=== PATIENT | female | born 1950 | race Caucasian/White ===

== ENCOUNTER → 2016-06-18 | Outpatient (CLI) | payer MEDICARE, OTHER ==
--- NOTE | 2016-06-19 08:17 | MRI ---
EXAM DESCRIPTION: MRI of the cervical spine CLINICAL HISTORY: SPONDYLOSIS W/O MYELOPATHY COMPARISON: October 19, 2015. TECHNIQUE: Multiplanar MRI of the cervical spine was performed without contrast. GENERAL There is reversal of the normal cervical lordosis. Disc desiccation at all levels of cervical spine with intervertebral disc height loss at C4-5 and C5-6. Anterior osteophytes noted at those 2 levels. C2-3 Mild right neural foraminal narrowing from facet and uncovertebral joint hypertrophy. The spinal canal and left neural foramina are unremarkable. C3-4 Moderate bilateral neural foraminal narrowing noted from facet and uncovertebral joint hypertrophy. 2 mm focal posterior disc protrusion with cord contact. Negative for myelomalacia. The midline diameter of spinal canal is adequate at 1 cm. C4-5 Asymmetric left broad-based posterior disc osteophyte complex with minimal cord flattening. The midline diameter spinal canal is adequate at 1 cm. There is moderate bilateral neural foraminal narrowing from facet and uncovertebral joint hypertrophy. C5-6 Mild bilateral neural foraminal narrowing from facet and uncovertebral joint hypertrophy. 3 mm broad-based posterior disc osteophyte complex is noted. No cord contact. The midline diameter spinal canal is adequate at 11 mm. C6-7 No spinal canal or neural foraminal narrowing. C7-T1 No significant findings. CORD AND INTRASPINAL No cervical cord or intraspinal lesions. IMPRESSION: Today's exam demonstrates multilevel degenerative disc and facet disease as described above with no spinal canal narrowing at any level. There is cord contact noted at C3-C4 and C4-C5 without evidence of myelomalacia. Neural foraminal narrowing noted from C2-C3 to C5-C6. Electronically signed by: Heladio Phillips MD 06/19/2016 08:15
== END ==
LOC: MRI 10:50
PROVIDERS: ATTEND Family Medicine
DX: M47.812 Spondylosis without myelopathy or radiculopathy, cervical region (principal); M43.00 Spondylolysis, site unspecified; M50.320 Other cervical disc degeneration, mid-cervical region, unspecified level

== ENCOUNTER → 2016-07-01 | Outpatient (CLI) | payer MEDICARE, OTHER | LOC: LAB.NP 15:33 | PROVIDERS: ATTEND Family Medicine | DX: E03.9 Hypothyroidism, unspecified (principal) ==

== ENCOUNTER → 2016-07-03 | Outpatient (CLI) | payer MEDICARE, OTHER | END | disposition home or self-care (01) | LOC: LAB.O 13:00 | PROVIDERS: ATTEND Family Medicine | DX: R19.7 Diarrhea, unspecified (principal); E03.9 Hypothyroidism, unspecified ==

== ENCOUNTER 2016-08-16 18:58 | Observation (INO) | payer MEDICARE, OTHER ==
[2016-08-16] MEDS ORDERED: SODIUM CHLORIDE 0.9% 1000ML 1,000 ML IVS ONE (19:12)
[2016-08-16] MEDS ORDERED: SODIUM CHLORIDE 0.9% (FLUSH) 10 ML SYG IV PRN ×2 (19:46→22:18)
--- NOTE | 2016-08-16 20:31 | RAD ---
EXAM DESCRIPTION: Chest,1 View CLINICAL HISTORY: Syncope/Afib COMPARISON: None. TECHNIQUE: AP portable taken at 2012 hours, upright position. FINDINGS: Moderate expansion of the lungs. Dilated airspaces in the right upper lobe. No consolidation or pleural effusion. Slight elevation of the right hemidiaphragm. No pneumothorax. Cardiopulmonary vascular structures and mediastinum contour is negative. IMPRESSION: 1. Question of emphysematous changes in the right lung. No acute infiltrate. 2. No pulmonary vascular congestion. Electronically signed by: Ferny Prado MD 08/16/2016 8:30 PM CDT
[2016-08-16] MEDS ORDERED: KCL 20MEQ/WATER FOR INJ 100ML 20 MEQ in PREMIX BAG 1 BAG IVPB ONE (20:58)
[2016-08-16] MEDS ORDERED: MAGNESIUM SULFATE PREMIX 2GM 2 GM in PREMIX BAG 1 BAG IVPB ONE (21:01)
[2016-08-16] MEDS ORDERED: MAGNESIUM SULFATE PREMIX 2GM 50 ML IVPB ONE (21:04)
[2016-08-16] MEDS ORDERED: POTASSIUM CHLORIDE 20 MEQ TAB PO ONE (21:16)
--- NOTE | 2016-08-16 21:21 | ED.PDOC ---
History of Present Illness - General Chief Complaint: Syncope/Near Syncope Stated Complaint: diarrhea,syncope Time Seen by Provider: 08/16/16 19:11 Source: patient, RN notes reviewed, Vital Signs reviewed, family - - History of Present Illness Initial Comments: Patient is a 65 y/o female who had an episode of syncope this morning. She got out of bed and woke up with her dog licking her face. She does not know how long her LOC lasted. Patient was sent to the ED by Dr. Aldana. She has had diarrhea for 12 weeks. It is very watery, about 7-8 times a day. She is drinking water with some pedialyte. She has been seen by GI and recently had a [id number]. She does not yet have the results of the biopsies. She has had testing done on her stool and there is no C.diff or ova/parasites. Over the past 2 weeks, she has passed out 3 times. She is feeling very weak, and her says she sometimes gets confused. Concern is that she has anemia or significant dehydration. Timing/Duration: other - 12 weeks of diarrhea, worsening over past 2 weeks Severity: severe Improving Factors: nothing Worsening Factors: nothing Associated Symptoms: malaise, syncope, weakness Allergies/Adverse Reactions: Allergies Penicillin G Allergy (Mild, Verified 09/15/12 08:37) Sulfur Allergy (Mild, Verified 09/15/12 08:37) Clarithromycin [From Biaxin] Allergy (Unverified 08/09/13 08:51) Home Medications: Ambulatory Orders Folic Acid 1 mg PO DAILY 08/08/13 Levothyroxine Sodium 75 mcg PO DAILY 08/08/13 Lisinopril 10 mg PO DAILY 08/08/13 Venlafaxine HCl [Venlafaxine HCl ER] 75 mg PO DAILY 08/08/13 Zolpidem Tartrate 10 mg PO HS 08/08/13 Loperamide HCl Cap [Imodium Cap] 2 mg PO Q4H 08/16/16 Mesalamine [Lialda] 2.4 gm PO DAILY 08/16/16 Relpax 08/16/16 Toprol Xl 08/16/16 Xarelto 08/16/16 Review of Systems - Review of Systems Constitutional: States: malaise, weakness EENTM: States: no symptoms reported Respiratory: States: no symptoms reported Cardiology: States: no symptoms reported Gastrointestinal/Abdominal: States: nausea Genitourinary: States: no symptoms reported Musculoskeletal: States: joint pain, muscle pain, neck pain Skin: States: no symptoms reported Neurological: States: weakness Endocrine: States: no symptoms reported Hematologic/Lymphatic: States: no symptoms reported All other Systems: Reviewed and Negative Past Medical History (General) - Patient Medical History Hx Cardiac Disorders: Yes - Atrial fib Hx Congestive Heart Failure: No Hx Diabetes: No Hx MRSA: No - Vaccination History Hx Influenza Vaccination: Yes Hx Pneumococcal Vaccination: Yes - Social History Hx Tobacco Use: No Family Medical History - Family History Mother Family History: Unknown Living Status: Unknown Physical Exam - Physical Exam General Appearance: Alert, Comfortable, No apparent distress Eye Exam: bilateral normal Ears, Nose, Throat: hearing grossly normal, normal ENT inspection Respiratory: lungs clear, normal breath sounds, no respiratory distress, no accessory muscle use Cardiovascular/Chest: regular rate, rhythm, no edema, no gallop, no murmur Gastrointestinal/Abdominal: non tender, soft, no organomegaly, abnormal bowel sounds - hyperactive Extremity: normal range of motion, non-tender, normal inspection, no pedal edema Neurologic: no motor/sensory deficits, alert, normal mood/affect, oriented x 3 Skin Exam: normal color, warm/dry Progress - Results/Orders Results/Orders: 08/16/16 08/16/16 08/16/16 19:14 20:03 20:09 Temperature 99.6 F Pulse Rate [ 105 H 97 H Left Brachial] Respiratory 16 16 Rate Blood Pressure 141/82 111/71 [Left Arm] O2 Sat by Pulse 95 92 L 92 L Oximetry 08/16/16 21:13 Temperature Pulse Rate [ 97 H Left Brachial] Respiratory 16 Rate Blood Pressure 117/75 [Left Arm] O2 Sat by Pulse 93 L Oximetry 08/16/16 19:46 Telemetry .ONCE Sodium Chloride 0.9% (Flush) [Saline Flush Syringe] 10 ml IV PRN PRN EKG Stat Pulse Ox Stat 08/16/16 20:58 KCl 20Meq/Water For Inj 100Ml [Potassium 20meq in Water 100ml] 20 meq Premix Bag 1 bag IVPB ONCE 08/16/16 21:01 Magnesium Sulfate Premix 2Gm 2 gm Premix Bag 1 bag IVPB ONCE Laboratory Results WBC 5.2 K/mm3 (4.8-10.8) 08/16/16 19:30 RBC 3.86 M/mm3 (4.20-5.40) L 08/16/16 19:30 Hgb 12.1 gm/dL (12.0-16.0) 08/16/16 19:30 Hct 35.6 % (36.0-47.0) L 08/16/16 19:30 MCV 92.1 fl (81.0-99.0) 08/16/16 19:30 MCH 31.3 pg (27.0-31.0) H 08/16/16 19:30 MCHC 34.1 g/dL (33.0-37.0) 08/16/16 19:30 RDW 13.4 % (11.5-14.5) 08/16/16 19:30 Plt Count 219 K/mm3 (130-400) 08/16/16 19:30 MPV 7.5 fl (7.40-10.4) 08/16/16 19:30 Absolute Neuts (auto) 3.40 K/uL (1.8-6.8) 08/16/16 19:30 Absolute Lymphs (auto) 0.50 K/uL (1.0-3.4) L 08/16/16 19:30 Absolute Monos (auto) 1.20 K/uL (0.2-0.8) H 08/16/16 19:30 Absolute Eos (auto) 0.10 K/uL (0.0-0.4) 08/16/16 19:30 Absolute Basos (auto) 0.00 K/uL (0.0-0.1) 08/16/16 19:30 Neutrophils % 65.9 % (42.0-78.0) 08/16/16 19:30 Lymphocytes % 8.7 % (20.0-50.0) L 08/16/16 19:30 Monocytes % 23.2 % (2.0-9.0) H 08/16/16 19:30 Eosinophils % 1.6 % (1.0-5.0) 08/16/16 19:30 Basophils % 0.6 % (0.0-2.0) 08/16/16 19:30 Sodium 130 mmol/L (135-145) L 08/16/16 19:30 Potassium 2.5 mmol/L (3.6-5.0) L 08/16/16 19:30 Chloride 92 mmol/L (101-111) L 08/16/16 19:30 Carbon Dioxide 23 mmol/L (21-31) 08/16/16 19:30 Anion Gap 17.5 (12-18) 08/16/16 19:30 BUN 9 mg/dL (7-18) 08/16/16 19:30 Creatinine 0.80 mg/dL (0.6-1.3) 08/16/16 19:30 BUN/Creatinine Ratio 11.3 (10-20) 08/16/16 19:30 Random Glucose 108 mg/dL (70-105) H 08/16/16 19:30 Serum Osmolality 260.0 mOsm/L (275-295) L 08/16/16 19:30 Calcium 8.7 mg/dL (8.4-10.2) 08/16/16 19:30 Magnesium 1.4 mg/dL (1.8-2.5) L 08/16/16 19:30 Total Bilirubin 0.9 mg/dL (0.2-1.0) 08/16/16 19:30 AST 31 IU/L (10-42) 08/16/16 19:30 ALT 19 IU/L (10-60) 08/16/16 19:30 Alkaline Phosphatase 57 IU/L (42-121) 08/16/16 19:30 Creatine Kinase 460 IU/L (26-140) H* 08/16/16 19:30 CK-MB (CK-2) 7.6 ng/mL (0.0-4.4) H* 08/16/16 19:30 CK-MB (CK-2) % 1.65 % (0.0-4.3) 08/16/16 19:30 Troponin I < 0.02 ng/mL (0.01-0.05) 08/16/16 19:30 B-Natriuretic Peptide 60.4 pg/ml (0-100) 08/16/16 19:30 Serum Total Protein 6.9 gm/dL (6.4-8.2) 08/16/16 19:30 Albumin 3.4 g/dl (3.2-5.5) 08/16/16 19:30 Globulin 3.5 gm/dL (2.3-3.5) 08/16/16 19:30 Albumin/Globulin Ratio 1.0 (1.1-1.9) L 08/16/16 19:30 Urine Color Yellow (Yellow) 08/16/16 19:35 Urine Appearance Clear (Clear) 08/16/16 19:35 Urine pH 6.0 (4.5-7.8) 08/16/16 19:35 Ur Specific Nemo 1.015 (1.005-1.030) 08/16/16 19:35 Urine Protein 30 mg/dL 08/16/16 19:35 Urine Glucose (UA) Negative mg/dL (Negative) 08/16/16 19:35 Urine Ketones >=160 mg/dL (NEGATIVE) 08/16/16 19:35 Urine Blood Small (Negative) H 08/16/16 19:35 Urine Nitrite Negative 08/16/16 19:35 Urine Bilirubin Small (NEGATIVE) H 08/16/16 19:35 Urine Urobilinogen 0.2 mg/dL (0.2-1.0) 08/16/16 19:35 Ur Leukocyte Esterase Negative (Negative) 08/16/16 19:35 Urine RBC 0-1 /hpf 08/16/16 19:35 Urine WBC 1-3 /hpf 08/16/16 19:35 Ur Epithelial Cells 3-5 /hpf 08/16/16 19:35 Urine Bacteria Rare 08/16/16 19:35 - EKG/XRAY/CT EKG: Sinus - 99 BPM, no ST T wave changes Comments: NML axis, Prolonged QT, No comparison--NSR with prolonged QT Departure - Departure Clinical Impression: Hypokalemia, gastrointestinal losses, Hypomagnesemia, Dehydration Syncope Qualifiers: Syncope type: unspecified Qualifier Code: (R55) Syncope and collapse Time of Disposition: 21:37 Disposition: Admit Patient Home Medications: Ambulatory Orders Folic Acid 1 mg PO DAILY 08/08/13 Levothyroxine Sodium 75 mcg PO DAILY 08/08/13 Lisinopril 10 mg PO DAILY 08/08/13 Venlafaxine HCl [Venlafaxine HCl ER] 75 mg PO DAILY 08/08/13 Zolpidem Tartrate 10 mg PO HS 08/08/13 Loperamide HCl Cap [Imodium Cap] 2 mg PO Q4H 08/16/16 Mesalamine [Lialda] 2.4 gm PO DAILY 08/16/16 Relpax 08/16/16 Toprol Xl 08/16/16 Xarelto 08/16/16 Decision To Admit - Decistion To Admit Decision to Admit Date: 08/16/16 Decision to Admit Time: 21:10
[2016-08-16] MEDS ORDERED: KCL 20MEQ/WATER FOR INJ 100ML 100 ML IVPB ONE (21:37)
[2016-08-16] MEDS ORDERED: ONDANSETRON INJ 4 MG/2 ML VIAL IV PRN (22:18)
[2016-08-16] MEDS ORDERED: MAGNESIUM HYDROXIDE 30 ML UD PO PRN (22:18)
[2016-08-16] MEDS ORDERED: HYDROcodone 5MG/APAP 325MG 1 EA TAB PO PRN (22:18)
[2016-08-16] MEDS ORDERED: LEVALBUTEROL NEBS 1.25 MG/3 ML VIAL NEB PRN (22:18)
[2016-08-16] MEDS ORDERED: LOPERAMIDE CAP 2 MG CAP PO PRN (22:23)
[2016-08-16] MEDS ORDERED: TEMAZEPAM 15 MG CAP PO PRN (22:26)
[2016-08-16] MEDS ORDERED: IV SET AND CAP CHANGE INJ INJ SCH (22:30)
[2016-08-16] MEDS: KCL 40MEQ/NS 1,000 ML IVS PRN (22:51)
[2016-08-16] MEDS: BIFIDOBACTERIUM INFANTIS 4 MG CAP PO SCH (22:58)
[2016-08-17] MEDS ORDERED: OMEPRAZOLE CAP 20 MG CAP PO SCH (06:30)
[2016-08-17] MEDS ORDERED: POTASSIUM CHLORIDE 20 MEQ TAB PO SCH (07:30)
[2016-08-17] MEDS: BIFIDOBACTERIUM INFANTIS 4 MG CAP PO SCH (08:25)
[2016-08-17] MEDS ORDERED: LEVOTHYROXINE SODIUM 0.075 MG TAB PO SCH (08:30)
[2016-08-17] MEDS ORDERED: METOPROLOL SUCCINATE XL 50 MG TAB PO SCH (09:00)
[2016-08-17] MEDS ORDERED: LISINOPRIL 10 MG TAB PO SCH (09:00)
[2016-08-17] MEDS ORDERED: VENLAFAXINE XR 75 MG CAP PO SCH (09:00)
[2016-08-17] MEDS ORDERED: MESALAMINE 2.4 GM PO SCH (09:00)
[2016-08-17 09:50] VITALS: BP 104/71; TEMP 98.3; O2SAT 95
[2016-08-17] MEDS: KCL 40MEQ/NS 1,000 ML IVS PRN (09:58)
[2016-08-17] MEDS ORDERED: methylPREDNISolone SODIUM SUC 40 MG/ML VIAL IV ONE (10:24)
--- NOTE | 2016-08-17 11:57 | SSS ---
DIAGNOSES ON DISCHARGE: 1. Chronic diarrhea possibly secondary to biopsy-proven acute colitis after colonoscopy 2 weeks ago versus an acute exacerbation of ulcerative colitis having failed outpatient therapy and requiring close gastrointestinal followup. 2. Hypokalemia requiring supplementation showing improvement. 3. History of atrial fibrillation on Xarelto anticoagulation currently now in a normal sinus rhythm with close clinical followup. 4. History of hypertension. 5. History of recurring syncopal episodes probably related to postural hypotension with syncope or vaso vagal presentations. HISTORY OF PRESENT ILLNESS: This 65 year-old white female was placed in the hospital for overnight observation from the Emergency Room after being brought by EMS to the E. . because of syncopal episodes and being on the ground for an extended period of time. She has had worsening diarrhea stools for the last 12 weeks. She has been seen in the gastrointestinal clinic having had a colonoscopy with biopsies about 2 weeks ago. Results of the biopsies were detected on the morning of discharge and showed acute colitis even though clinically the feather maker felt that she may have had ulcerative colitis. She has passed out at least 3 times during the last 2 weeks, most recently on the morning of admission to the E. . and to the hospital. She has had chronic diarrhea episodes dating back over 3 years at which time she had a colonoscopy performed by Dr. Corrales on 08/08/13. Dr. Caputo, GI specialist, has continued her ongoing care with her last colonoscopy 2 weeks ago with acute colitis on biopsy. The patient was placed in the hospital for continued IV hydration as well as supplement of the potassium which was low at 2.5. Telemetry to help observe for signs of arrhythmia contributing to the syncope is to be observed. PAST MEDICAL HISTORY: 1. Seasonal rhinitis. 2. Migraine headaches. 3. Hypertension. 4. Low thyroid on supplement. 5. Osteoarthritis. 6. Rheumatoid arthritis. 7. Irritable bowel syndrome. 8. Possible colitis. 9. Menopausal symptoms. 10. History of leukopenia in the past. PAST SURGICAL HISTORY: 1. Sinus surgery. 2. Tonsillectomy and adenoidectomy. 3. Colonoscopy 2005 and 2013, and again 2 weeks ago in 2017. CURRENT MEDICATIONS: Please refer to nurses' notes for an up to date list of medications verified to be taken by the patient. ALLERGIES: PENICILLIN, BIAXIN AND SULFA. FAMILY HISTORY: Positive for congestive heart failure, diabetes, low thyroid and arthritis. 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 She lives in [place] with her . REVIEW OF SYSTEMS: Chills but no fevers are noted. Weight has even gained recently. HEENT: Head congestion, occasional history of headaches. CARDIOVASCULAR: No chest pains or palpitations. History of atrial fibrillation. PULMONARY: Some increasing shortness of breath especially upon climbing steps but no cough or hemoptysis. GASTROINTESTINAL: Decreased appetite with abdominal cramping and diarrhea stools being followed by Dr. Aldana and Dr. Caputo, GI Clinic. Getting worse over the last 3 months. GENITOURINARY: No dysuria. NEUROLOGIC: Headaches have noted as well as syncopal episodes on 3 occasions in the last 3 weeks. PHYSICAL EXAMINATION: VITAL SIGNS: Afebrile, pulse 96, blood pressure 104/71, respirations 20, pulse oximetry 95% on room air, weight 49.4 kilos and stable. GENERAL: The patient is awake and alert. After IV hydration overnight she was feeling much improved on the morning of discharge. HEENT: Within normal limits. Coloration has improved overnight. CHEST: Lungs are generally clear to auscultation. CARDIOVASCULAR: Heart tones are regular with no gallops. ABDOMEN: Soft with slightly increased bowel tone activity. No organomegaly or masses otherwise noted. No rebound tenderness. EXTREMITIES: Well formed with fairly good muscle tone. NEUROLOGIC: No focal neurological deficits. The patient is awake, alert and oriented, and communicative. LABORATORY STUDIES: White count of 4,600 on discharge, 11.3 hemoglobin, normal platelets. Chemistry shows potassium low at 2.5 up to 3.7 with supplementation , sodium 130 up to 136 at discharge, glucose was 82 on discharge, osmolality is up to 289, magnesium was low at 1.4 with supplementation given. CK was elevated at 460, albumin low at 2.8. Troponin was zero. C reactive protein very elevated at 24.6, beta natriuretic peptide normal at 60, lipase 21. Urinalysis showed small amount of hematuria and bilirubin, otherwise clean. Stool blood determination was negative on 2 occasions with third pending. Repeat C-Diff is pending with results to the clinic. Chest x-ray showed no acute findings other than some possible COPD findings in the right lung. No acute infiltrates or congestive heart failure. HOSPITAL COURSE: The patient was feeling much improved on the morning of discharge and was ready for outpatient followup. PLAN: The patient is scheduled to be seen by Dr. Aldana in the morning, 08/18/16 at 8:15 AM so that she can be seen without having to wait prolonged periods of time. Dr. Aldana' office will be instrumental in helping to arrange for an appointment with Dr. Caputo in the GI Clinic in a weeks' time. She will try to avoid certain food groups that maybe contributing to her symptoms, such as dairy and gluten products. She will continue with her home medications. Try Prednisone 40 mg daily beginning in the morning and will try potassium chloride 10 mEq b.i.d. for at least the next 2 weeks to increase her potassium reservoir. Observe stools closely for bleeding evidence. Drink plenty of fluids. Avoid falling or passing out. Return if not improving. #[id number] [facility]
[2016-08-17] MEDS ORDERED: RIVAROXABAN 10 MG TAB PO SCH (17:30)
== END 2016-08-17 11:44 | disposition home or self-care (01) ==
LOC: ER 18:58 → MS 22:18
PROVIDERS: ADMIT Emergency Medicine; ATTEND Emergency Medicine
DX: K52.9 Noninfective gastroenteritis and colitis, unspecified (principal); E87.6 Hypokalemia; I48.91 Unspecified atrial fibrillation; I10 Essential (primary) hypertension; R55 Syncope and collapse; E83.42 Hypomagnesemia; E86.0 Dehydration; E03.9 Hypothyroidism, unspecified; M06.9 Rheumatoid arthritis, unspecified; M19.90 Unspecified osteoarthritis, unspecified site; J30.2 Other seasonal allergic rhinitis; Z79.01 Long term (current) use of anticoagulants; Z79.899 Other long term (current) drug therapy; Z88.0 Allergy status to penicillin; Z88.2 Allergy status to sulfonamides; Z88.3 Allergy status to other anti-infective agents; Z82.49 Family history of ischemic heart disease and other diseases of the circulatory system; Z83.3 Family history of diabetes mellitus; Z82.61 Family history of arthritis; Z83.49 Family history of other endocrine, nutritional and metabolic diseases
CPT/HCPCS: 36415 ×3; 71010; 80053 ×2; 81001; 82270 ×3; 82550; 82553; 83690; 83735; 83880; 84484; 85025 ×2; 86140; 87324; 93005; 94760 ×3; 96361; 96365; 96366 ×2; 96367; 96375; 99284; G0378; J1030; J3475; J3480 ×3; J7030

== ENCOUNTER 2016-08-23 10:59 | Inpatient (IN) | payer MEDICARE, OTHER ==
--- NOTE | 2016-08-23 11:30 | ED.PDOC ---
History of Present Illness - General Chief Complaint: GI Problem Stated Complaint: diarrhea,may have low potassium Time Seen by Provider: 08/23/16 11:29 Source: patient, family Exam Limitations: no limitations - History of Present Illness Initial Comments: Natalie Baca 65 y/o female with history of afib and chronic diarrhea for the last 18 weeks stated that she continue to have diarrhea and had seen GI specialist 2 weeks ago colonoscopy done with biopsy showing colitis .This morning unable to get up she was shaky and does not know where she was. Timing/Duration: intermittent, other - 18 weeks Severity: moderate Improving Factors: nothing Worsening Factors: eating Associated Symptoms: denies symptoms Allergies/Adverse Reactions: Allergies Penicillin G Allergy (Mild, Verified 09/15/12 08:37) Sulfur Allergy (Mild, Verified 09/15/12 08:37) Clarithromycin [From Biaxin] Allergy (Verified 08/23/16 15:47) Home Medications: Ambulatory Orders Folic Acid 1 mg PO DAILY 08/08/13 Levothyroxine Sodium 75 mcg PO DAILY 08/08/13 Venlafaxine HCl [Venlafaxine HCl ER] 75 mg PO DAILY 08/08/13 Zolpidem Tartrate 5 mg PO HS PRN 08/08/13 Loperamide HCl Cap [Imodium Cap] 2 mg PO Q4H 08/16/16 Mesalamine [Lialda] 2.4 gm PO DAILY 08/16/16 Conjugated Estrogens-Medroxypr [Prempro 0.45-1.5 mg] 1 tab PO DAILY 08/17/16 Eletriptan Hydrobromide [Relpax] 40 mg PO Q2H PRN 08/17/16 Lactobacillus Rhamnosus (GG) [Culturelle] 20 b PO DAILY 08/17/16 Metoprolol Succinate [Toprol Xl] 50 mg PO DAILY 08/17/16 Potassium Chloride [K-Tab] 10 meq PO BID #30 tab 08/17/16 Rivaroxaban [Xarelto] 20 mg PO 1730 08/17/16 predniSONE [Prednisone] 40 mg PO QAM #60 tab 08/17/16 Review of Systems - Review of Systems Constitutional: States: weakness, other - weight loss 10 pounds EENTM: States: no symptoms reported Respiratory: States: no symptoms reported Cardiology: States: no symptoms reported Gastrointestinal/Abdominal: States: diarrhea - chronic Genitourinary: States: no symptoms reported Musculoskeletal: States: joint pain - RA Skin: States: no symptoms reported Neurological: States: no symptoms reported Endocrine: States: no symptoms reported Hematologic/Lymphatic: States: no symptoms reported Past Medical History (General) - Patient Medical History Hx Seizures: No Hx Stroke: No Hx Asthma: No Hx of COPD: No Hx Cardiac Disorders: Yes - Atrial fib Hx Congestive Heart Failure: No Hx Pacemaker: No Hx Hypertension: Yes Hx Diabetes: No Hx MRSA: No Hx Other PMH: Yes - RA Surgical History: tonsillectomy, other - hysterectomy - Vaccination History Hx Influenza Vaccination: Yes Hx Pneumococcal Vaccination: Yes - Social History Hx Tobacco Use: No Hx Alcohol Use: No Hx Substance Use: No Hx Physical Abuse: No Hx Emotional Abuse: No Family Medical History - Family History Mother Family History: Unknown Living Status: Unknown Hx Family Hypertension: Yes Hx Cardiac Disease: Yes Hx Family;Other: Rheumatoid arthritis Physical Exam - Physical Exam General Appearance: Alert, Anxious, No apparent distress, Other - weak unable to get up without assistance Eye Exam: bilateral normal Ears, Nose, Throat: hearing grossly normal, normal ENT inspection, normal pharynx Neck: non-tender, full range of motion, supple, normal inspection Respiratory: chest non-tender, lungs clear, normal breath sounds, no respiratory distress, no accessory muscle use Cardiovascular/Chest: normal peripheral pulses, no edema, no gallop, no JVD, no murmur, irregularly irregular Peripheral Pulses: radial,right: 2+, radial,left: 2+ Gastrointestinal/Abdominal: normal bowel sounds, non tender, soft, no organomegaly, no pulsatile mass Back Exam: normal inspection, no CVA tenderness Neurologic: radio presenter II-XII nml as tested, no motor/sensory deficits, alert, normal mood/affect, disoriented x 3 - to place ,person,time, other - speech fluent no pronator drift Skin Exam: normal color, warm/dry, cyanosis Lymphatic: no adenopathy Progress - Results/Orders Results/Orders: 08/23/16 11:31 URINALYSIS Stat 08/23/16 11:45 EKG STAT Laboratory Results WBC 8.6 K/mm3 (4.8-10.8) 08/23/16 11:31 RBC 4.42 M/mm3 (4.20-5.40) 08/23/16 11:31 Hgb 13.5 gm/dL (12.0-16.0) 08/23/16 11:31 Hct 40.7 % (36.0-47.0) 08/23/16 11:31 MCV 92.2 fl (81.0-99.0) 08/23/16 11:31 MCH 30.5 pg (27.0-31.0) 08/23/16 11:31 MCHC 33.1 g/dL (33.0-37.0) 08/23/16 11:31 RDW 13.9 % (11.5-14.5) 08/23/16 11:31 Plt Count 270 K/mm3 (130-400) 08/23/16 11:31 MPV 7.7 fl (7.40-10.4) 08/23/16 11:31 Absolute Neuts (auto) 7.50 K/uL (1.8-6.8) H 08/23/16 11:31 Absolute Lymphs (auto) 0.70 K/uL (1.0-3.4) L 08/23/16 11:31 Absolute Monos (auto) 0.30 K/uL (0.2-0.8) 08/23/16 11:31 Absolute Eos (auto) 0.00 K/uL (0.0-0.4) 08/23/16 11:31 Absolute Basos (auto) 0.00 K/uL (0.0-0.1) 08/23/16 11:31 Neutrophils % 87.1 % (42.0-78.0) H 08/23/16 11:31 Lymphocytes % 8.6 % (20.0-50.0) L 08/23/16 11:31 Monocytes % 3.9 % (2.0-9.0) 08/23/16 11:31 Eosinophils % 0.3 % (1.0-5.0) L 08/23/16 11: Basophils % 0.1 % (0.0-2.0) 08/23/16 11:31 Sodium 135 mmol/L (135-145) 08/23/16 11:31 Potassium 4.8 mmol/L (3.6-5.0) 08/23/16 11:31 Chloride 94 mmol/L (101-111) L 08/23/16 11:31 Carbon Dioxide 31 mmol/L (21-31) 08/23/16 11:31 Anion Gap 14.8 (12-18) 08/23/16 11:31 BUN 16 mg/dL (7-18) 08/23/16 11:31 Creatinine 0.88 mg/dL (0.6-1.3) 08/23/16 11:31 BUN/Creatinine Ratio 18.2 (10-20) 08/23/16 11:31 Random Glucose 100 mg/dL (70-105) 08/23/16 11:31 Serum Osmolality 271.4 mOsm/L (275-295) L 08/23/16 11:31 Calcium 9.1 mg/dL (8.4-10.2) 08/23/16 11:31 Magnesium 1.5 mg/dL (1.8-2.5) L 08/23/16 11:32 Total Bilirubin 0.5 mg/dL (0.2-1.0) 08/23/16 11:31 AST 34 IU/L (10-42) 08/23/16 11:31 ALT 38 IU/L (10-60) 08/23/16 11:31 Alkaline Phosphatase 64 IU/L (42-121) 08/23/16 11:31 Serum Total Protein 6.3 gm/dL (6.4-8.2) L 08/23/16 11:31 Albumin 3.0 g/dl (3.2-5.5) L 08/23/16 11:31 Globulin 3.3 gm/dL (2.3-3.5) 08/23/16 11:31 Albumin/Globulin Ratio 0.9 (1.1-1.9) L 08/23/16 11:31 08/23/16 11:45 EKG STAT 08/23/16 15:01 Multiple Vitamin Inj [MVI Injectable] 10 ml Sodium Chloride 0.9% 1000ML [Ns 1000 ml] 1,000 ml IVPB ONCE Laboratory Results WBC 8.6 K/mm3 (4.8-10.8) 08/23/16 11:31 RBC 4.42 M/mm3 (4.20-5.40) 08/23/16 11:31 Hgb 13.5 gm/dL (12.0-16.0) 08/23/16 11:31 Hct 40.7 % (36.0-47.0) 08/23/16 11:31 MCV 92.2 fl (81.0-99.0) 08/23/16 11:31 MCH 30.5 pg (27.0-31.0) 08/23/16 11:31 MCHC 33.1 g/dL (33.0-37.0) 08/23/16 11:31 RDW 13.9 % (11.5-14.5) 08/23/16 11:31 Plt Count 270 K/mm3 (130-400) 08/23/16 11:31 MPV 7.7 fl (7.40-10.4) 08/23/16 11:31 Absolute Neuts (auto) 7.50 K/uL (1.8-6.8) H 08/23/16 11:31 Absolute Lymphs (auto) 0.70 K/uL (1.0-3.4) L 08/23/16 11:31 Absolute Monos (auto) 0.30 K/uL (0.2-0.8) 08/23/16 11:31 Absolute Eos (auto) 0.00 K/uL (0.0-0.4) 08/23/16 11:31 Absolute Basos (auto) 0.00 K/uL (0.0-0.1) 08/23/16 11:31 Neutrophils % 87.1 % (42.0-78.0) H 08/23/16 11:31 Lymphocytes % 8.6 % (20.0-50.0) L 08/23/16 11:31 Monocytes % 3.9 % (2.0-9.0) 08/23/16 11:31 Eosinophils % 0.3 % (1.0-5.0) L 08/23/16 11: Basophils % 0.1 % (0.0-2.0) 08/23/16 11:31 Sodium 135 mmol/L (135-145) 08/23/16 11:31 Potassium 4.8 mmol/L (3.6-5.0) 08/23/16 11:31 Chloride 94 mmol/L (101-111) L 08/23/16 11:31 Carbon Dioxide 31 mmol/L (21-31) 08/23/16 11:31 Anion Gap 14.8 (12-18) 08/23/16 11:31 BUN 16 mg/dL (7-18) 08/23/16 11:31 Creatinine 0.88 mg/dL (0.6-1.3) 08/23/16 11:31 BUN/Creatinine Ratio 18.2 (10-20) 08/23/16 11:31 Random Glucose 100 mg/dL (70-105) 08/23/16 11:31 Serum Osmolality 271.4 mOsm/L (275-295) L 08/23/16 11:31 Calcium 9.1 mg/dL (8.4-10.2) 08/23/16 11:31 Magnesium 1.5 mg/dL (1.8-2.5) L 08/23/16 11:32 Total Bilirubin 0.5 mg/dL (0.2-1.0) 08/23/16 11:31 AST 34 IU/L (10-42) 08/23/16 11:31 ALT 38 IU/L (10-60) 08/23/16 11:31 Alkaline Phosphatase 64 IU/L (42-121) 08/23/16 11:31 Serum Total Protein 6.3 gm/dL (6.4-8.2) L 08/23/16 11:31 Albumin 3.0 g/dl (3.2-5.5) L 08/23/16 11:31 Globulin 3.3 gm/dL (2.3-3.5) 08/23/16 11:31 Albumin/Globulin Ratio 0.9 (1.1-1.9) L 08/23/16 11:31 Urine Color Yellow (Yellow) 08/23/16 14:48 Urine Appearance Clear (Clear) 08/23/16 14:48 Urine pH 5.5 (4.5-7.8) 08/23/16 14:48 Ur Specific [place] 1.020 (1.005-1.030) 08/23/16 14:48 Urine Protein Negative mg/dL 08/23/16 14:48 Urine Glucose (UA) Negative mg/dL (Negative) 08/23/16 14:48 Urine Ketones Negative mg/dL (NEGATIVE) 08/23/16 14:48 Urine Blood Negative (Negative) 08/23/16 14:48 Urine Nitrite Negative 08/23/16 14:48 Urine Bilirubin Negative (NEGATIVE) 08/23/16 14:48 Urine Urobilinogen 0.2 mg/dL (0.2-1.0) 08/23/16 14:48 Ur Leukocyte Esterase Negative (Negative) 08/23/16 14:48 Urine RBC 0 /hpf 08/23/16 14:48 Urine WBC 0 /hpf 08/23/16 14:48 Ur Epithelial Cells 0 /hpf 08/23/16 14:48 Urine Bacteria 0 08/23/16 14:48 - EKG/XRAY/CT CT Ordered: Yes - head no acute abnormality Departure - Departure Clinical Impression: Chronic diarrhea of unknown origin, Hypomagnesemia, Altered awareness, transient, Myopathy, unspecified Time of Disposition: 16:01 - D/W Nick Kuo ANP-Hospitalist Disposition: Admit Patient Condition: Fair Referrals: Martín Aldana MD [Primary Care Provider] - 1-2 Weeks Home Medications: Ambulatory Orders Folic Acid 1 mg PO DAILY 08/08/13 Levothyroxine Sodium 75 mcg PO DAILY 08/08/13 Venlafaxine HCl [Venlafaxine HCl ER] 75 mg PO DAILY 08/08/13 Zolpidem Tartrate 5 mg PO HS PRN 08/08/13 Loperamide HCl Cap [Imodium Cap] 2 mg PO Q4H 08/16/16 Mesalamine [Lialda] 2.4 gm PO DAILY 08/16/16 Conjugated Estrogens-Medroxypr [Prempro 0.45-1.5 mg] 1 tab PO DAILY 08/17/16 Eletriptan Hydrobromide [Relpax] 40 mg PO Q2H PRN 08/17/16 Lactobacillus Rhamnosus (GG) [Culturelle] 20 b PO DAILY 08/17/16 Metoprolol Succinate [Toprol Xl] 50 mg PO DAILY 08/17/16 Potassium Chloride [K-Tab] 10 meq PO BID #30 tab 08/17/16 Rivaroxaban [Xarelto] 20 mg PO 1730 08/17/16 predniSONE [Prednisone] 40 mg PO QAM #60 tab 08/17/16
--- NOTE | 2016-08-23 12:51 | RAD ---
EXAM DESCRIPTION: Chest,1 View CLINICAL HISTORY: SOB COMPARISON: August 16, 2016 FINDINGS: Cardiac silhouette is within normal limits. Aorta is tortuous. EKG leads project over the chest. There is scoliosis of the thoracolumbar spine. There is no focal parenchymal or pleural disease. There is no acute osseous process visualized. IMPRESSION: No evidence of acute cardiopulmonary disease. Electronically signed by: Marvel Phillips MD 08/23/2016 12:50 PM CDT
[2016-08-23] MEDS ORDERED: SODIUM CHLORIDE 0.9% 1000ML 1,000 ML IVS ONE (12:54)
[2016-08-23] MEDS ORDERED: MAGNESIUM SULFATE PREMIX 2GM 2 GM in PREMIX BAG 1 BAG IVPB ONE (12:56)
[2016-08-23] MEDS ORDERED: MAGNESIUM SULFATE PREMIX 2GM 50 ML IVPB ONE (13:00)
[2016-08-23] MEDS ORDERED: MULTIPLE VITAMIN INJ 10 ML in SODIUM CHLORIDE 0.9% 1000ML 1,000 ML IVPB ONE (15:01)
[2016-08-23] MEDS ORDERED: SODIUM CHLORIDE 0.9% 1000ML 1,000 ML ONE (15:31)
[2016-08-23] MEDS ORDERED: MULTIPLE VITAMIN 10 ML VIAL ONE (15:32)
--- NOTE | 2016-08-23 15:41 | CT ---
EXAM DESCRIPTION: Head CLINICAL HISTORY: altered mental COMPARISON: None Available. TECHNIQUE: Contiguous axial images of the brain were obtained without the administration of intravenous contrast. FINDINGS: There is no acute intracranial hemorrhage or mass effect. There are areas of low-attenuation within the periventricular and subcortical white matter which are nonspecific but suggestive of small vessel disease. Ventricular system is within normal limits. There is adequate [place]-white matter differentiation. There is no skull fracture. The visualized paranasal sinuses and mastoid air cells are within normal limits. IMPRESSION: No acute intracranial abnormalities. Areas of low-attenuation within the periventricular and subcortical white matter are nonspecific but suggestive of small vessel disease. Electronically signed by: Marvel Phillips MD 08/23/2016 3:40 PM CDT
--- NOTE | 2016-08-23 16:29 | HP ---
SUPERVISING PHYSICIAN: Martín Aldana M.D. CHIEF COMPLAINT: Chronic diarrhea, weakness and confusion. HISTORY OF PRESENT ILLNESS: Ms. Baca is a 65 year-old female patient with a significant history of chronic diarrhea for well over 18 weeks and being followed by a gastrointestinal specialist in [place]. She has had a colonoscopy within the last 3 weeks, including a biopsy with acute colitis and has had several episodes of dehydration due to the persistent diarrhea. Today, her noted that the patient was unable to get up out of bed this morning, was very shaky and was confused as to where she was. She presented to the Emergency Department with dehydration and laboratory studies completed showed that she had a low magnesium at 1.5, potassium 4.8, glucose 100. Urinalysis showed to be within normal limits. White count was 8.6. The patient has a longstanding history of leukopenia and also of note was a left shift with fever of 102.2 in the Emergency Department. Given the patient's longstanding history of chronic diarrhea, colitis and some confusion today a CT of the head was completed and per radiology interpretation showed no acute intracranial abnormalities. She was given a multivitamin infusion in the Emergency Department as well as 2 grams of magnesium and showed improvement in her mental status. The patient now is to be admitted to the Medical/Surgical floor for continued treatment and evaluation with concerns for possible underlying superimposed infection with the patient being febrile on admission. The patient was admitted with the patient being febrile on admission along with her being tachycardic and having some mild confusion. She was admitted in stable condition. PAST MEDICAL HISTORY: 1. History of leukopenia. 2. Seasonal rhinitis. 3. Migraine headaches. 4. Hypertension. 5. Low thyroid on supplementation. 6. Osteoarthritis. 7. Rheumatoid arthritis. 8. Irritable bowel syndrome. 9. Possible colitis currently being followed by Dr. Caputo, gastrointestinal specialist pending continuation of workup. 10. Menopausal syndrome. 11. Depression. 12. History of atrial fibrillation with most recent echocardiogram showing sinus rhythm. The patient is on chronic anticoagulation with Xarelto. PAST SURGICAL HISTORY: 1. Sinus surgery. 2. Tonsillectomy and adenoidectomy. 3. Colonoscopies in 2005 and 2013 with most recent being within the last 3 weeks. CURRENT MEDICATIONS: 1. Prednisone 40 mg daily. 2. Zolpidem 5 mg at bedtime. 3. Venlafaxine 75 mg daily. 4. Xarelto 20 mg at 1730. 5. Potassium chloride 20 mEq b.i.d. 6. Toprol XL 50 mg daily. 7. Lialda 2.4 mg daily. 8. Imodium 2 mg every 4 hours. 9. Levothyroxine 75 mcg daily. 10. Probiotic. 11. Relpax 40 mg every 2 hours as needed for migraines. 12. Prempro 0.45/1.5 mg 1 tablet daily. ALLERGIES: PENICILLIN, BIAXIN AND SULFA. FAMILY HISTORY: Positive for congestive heart failure, diabetes, low thyroid and arthritis. 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 She lives in [place]. She is . She has no history of alcohol or tobacco usage. Denies any illicit drug use. REVIEW OF SYSTEMS: CONSTITUTIONAL: Positive for generalized weakness with a weight loss of 10 pounds. HEENT: Denies any nasal or head congestion. She does have a history of migraines. CARDIOVASCULAR: Denies any chest pains or palpitations. Has a history of atrial fibrillation on Xarelto. Denies any syncopal episodes. PULMONARY: Denies any shortness of breath, cough or hemoptysis. GASTROINTESTINAL: As noted in History of Present Illness, some abdominal cramping and liquid stools. Chronic diarrhea for well over [address] Aldana and Dr. Caputo, [facility], with multiple episodes of dehydration. GENITOURINARY: Denies any dysuria, increased frequency or other urinary symptoms. NEUROLOGIC: Denies any recent syncopal episodes. Has a history of migraines but denies any headaches, visual disturbances or other neurological deficits other than reported mild confusion as noted in the History of Present Illness with some shakiness prior to admission to the Emergency Department. PHYSICAL EXAMINATION: VITAL SIGNS: Temperature 102.2, pulse 118, blood pressure 82/60, respirations 20, O2 sat 92% on room air. Admission weight is 50.8 kg with previous admission in the last week being 49.4 kg with weight showing to be stable. GENERAL: The patient is alert and oriented times three on admission from the Emergency Department. She is very pleasant. Appears to be in no acute distress. HEENT: Tympanic membranes are clear bilaterally. Oropharynx is pink and moist without any lesions. NECK: No jugular venous distention. Neck is supple with full range of motion. CHEST: Lungs are clear to auscultation without any rhonchi, wheezing or rales. CARDIOVASCULAR: Regular rate and rhythm but tachycardic without any appreciable murmurs, gallops, or rubs. ABDOMEN: Notable for increased bowel sounds. No rebound tenderness, just some mild generalized abdominal discomfort on exam. The patient reports no increased discomfort from previous admission. EXTREMITIES: No clubbing, cyanosis or edema. NEUROLOGIC: She is alert and oriented times three. Facial features are symmetrical. Extraocular movements are within normal limits. There is no nystagmus. There are no notable neurological deficits. The patient is ambulatory without any difficulty. LABORATORY: White count shows to be 8.6 which is slightly elevated for the patient. She does have a longstanding history of neutropenia. She does have a left shift at this time. Hemoglobin 13.5, hematocrit 40.7. Chemistries show normal potassium 4.8, sodium 135, BUN 16, creatinine 0.8, magnesium was low at 1.5. Liver functions show to be within normal limits. TSH was 2.06. Urinalysis showed to be within normal limits. EKG shows normal sinus rhythm although tachycardic. RADIOLOGY: Chest x-ray in the Emergency Department prior to admission per radiology interpretation showed no evidence of acute cardiopulmonary disease. She also had a head CT without contrast and per radiology interpretation showed no acute intracranial abnormalities. ASSESSMENT: 1. Longstanding history of chronic diarrhea possibly secondary to acute colitis after colonoscopy 3 weeks previous versus ulcerative colitis with the patient having acute episodes of dehydration and weakness. 2. Hypomagnesemia secondary to persistent diarrhea. 3. Febrile illness with tachycardic rhythm with some mild confusion and some mild hypotension compared to previous admission vital signs possibly secondary to superimposed infection versus early septic process with the patient again having ongoing chronic diarrhea with exacerbation of ulcerative colitis. 4. History of atrial fibrillation on Xarelto anticoagulation showing normal sinus rhythm on EKG. 5. History of hypertension now hypotensive with concerns of an early septic process. PLAN: The patient initially was given fluids in the E. R. to include normal saline with a multivitamin infusion at 125 an hour. Given that she is shown to be hypotensive with a significant fever, will go ahead and start sepsis treatment with IV fluids to include a bolus liter of saline on admission to the Medical/Surgical floor times 1 liter to be followed-up with a liter of normal saline and continue with multivitamin infusion to be followed after that with a liter of lactated ringers with close monitoring of vital signs. The patient does show to be stable at this point and is actually afebrile on admission to the floor. Given that she did have 102 temperature and concerns for early sepsis and possible underlying superimposed infection given that the patient has a longstanding history of leukopenia, will go ahead and do stool cultures and start her on antibiotics to include Levaquin and Flagyl. She was given magnesium replacement 2 grams in the Emergency Department. Will plan to reevaluate this with repeat magnesium in the morning along with a CBC and BMP. She will be placed on telemetry with close I and O monitoring. Her home medications will be resumed when they are verified in the electronic medical records. At this point, the patient is stable, hopefully we will be able to discharge her late tomorrow after adequate IV fluids and further clinical evaluation. She does have an appointment to see GI specialist on Thursday at 8: 15 in [place]. Will await stool cultures and a Clostridium Difficile toxin study as well, and target antibiotic therapy according to findings. Until discharge, will continue to monitor the patient closely and treat appropriately. Dr. Aldana is the collaborating physician and has been notified of the patient's admission and discussion of plan of care, and is available for consultation. #[id number] [facility]
[2016-08-23] MEDS ORDERED: ACETAMINOPHEN 500 MG TAB PO ONE (16:38)
[2016-08-23] MEDS ORDERED: ACETAMINOPHEN 325 MG TAB PO PRN (17:32)
[2016-08-23] MEDS ORDERED: SODIUM CHLORIDE 0.9% (FLUSH) 10 ML SYG IV PRN (17:32)
[2016-08-23] MEDS ORDERED: ONDANSETRON INJ 4 MG/2 ML VIAL IV PRN (17:32)
[2016-08-23] MEDS ORDERED: LACTATED RINGERS 1,000 ML IVS PRN (17:57)
[2016-08-23] MEDS ORDERED: IV SET AND CAP CHANGE INJ INJ SCH (18:00)
[2016-08-23] MEDS ORDERED: KCL 20 MEQ/NS 1,000 ML IVS ONE (20:08)
[2016-08-23] MEDS ORDERED: ZOLPIDEM TARTRATE 10 MG TAB PO PRN (20:08)
[2016-08-23] MEDS ORDERED: levoFLOXacin 500MG IV 500 MG in PREMIX BAG 1 BAG IVPB SCH (20:30)
[2016-08-23] MEDS ORDERED: metroNIDAZOLE IV PREMIX 500MG 100 ML IVPB ONE ×2 (20:42→23:49)
[2016-08-23] MEDS ORDERED: levoFLOXacin 500MG IV 100 ML IVPB ONE (20:42)
[2016-08-23] MEDS ORDERED: ZOLPIDEM TARTRATE 5 MG TAB ONE (20:43)
[2016-08-23] MEDS: metroNIDAZOLE IV PREMIX 500MG 500 MG in PREMIX BAG 1 BAG IVPB SCH (20:51)
[2016-08-23] MEDS: LOPERAMIDE CAP 2 MG CAP PO SCH (20:53)
[2016-08-23] MEDS ORDERED: POTASSIUM CHLORIDE 10 MEQ TAB PO SCH (21:00)
--- NOTE | 2016-08-23 22:38 | PCM.CORE ---
Physician DVT/VTE - Prophylaxis Currently: Patient already on anticoagulation therapy - xarelto - Nurse DVT Assessment & Total Each Risk Factor Represents 2 Points: Age 60-74 Each Risk Factor Represents 1 Point: Medical PT at Bed Rest DVT Assessment Score: 3
[2016-08-24] MEDS: LOPERAMIDE CAP 2 MG CAP PO SCH ×3 (00:21→09:13)
[2016-08-24] MEDS: metroNIDAZOLE IV PREMIX 500MG 500 MG in PREMIX BAG 1 BAG IVPB SCH ×2 (04:35→11:36)
[2016-08-24] MEDS ORDERED: VENLAFAXINE HCL TAB 75 MG TAB ONE (07:31)
[2016-08-24] MEDS ORDERED: MESALAMINE 2.4 GM PO SCH (09:00)
[2016-08-24] MEDS ORDERED: LEVOTHYROXINE SODIUM 0.075 MG TAB PO SCH (09:00)
[2016-08-24] MEDS ORDERED: VANCOMYCIN HCL INJ 1,000 MG VIAL IVPB ONE (09:00)
[2016-08-24] MEDS ORDERED: FOLIC ACID 1 MG TAB PO SCH (09:00)
[2016-08-24] MEDS ORDERED: WATER FOR INJECTION, STERILE 100 ML VIAL INJ ONE (09:00)
[2016-08-24] MEDS ORDERED: METOPROLOL SUCCINATE XL 50 MG TAB PO SCH (09:00)
[2016-08-24] MEDS ORDERED: VENLAFAXINE XR 75 MG CAP PO SCH (09:00)
[2016-08-24] MEDS: VANCOMYCIN ORAL LIQUID 2,000 MG/80 ML BOTTLE PO SCH ×2 (09:12→11:36)
[2016-08-24] MEDS ORDERED: metroNIDAZOLE IV PREMIX 500MG 100 ML IVPB ONE (11:24)
[2016-08-24] MEDS ORDERED: MULTIPLE VITAMIN IV SCH ×4 (12:30)
[2016-08-24] MEDS ORDERED: [UNRECOGNIZED DRUG - OTHER] IV SCH ×4 (12:30)
[2016-08-24] MEDS ORDERED: POTASSIUM CHLORIDE IV SCH ×4 (12:30)
[2016-08-24 12:46] VITALS: TEMP 97; O2SAT 94
[2016-08-24] MEDS ORDERED: DEXTROSE 5% IVS ONE (13:36)
[2016-08-24] MEDS ORDERED: POTASSIUM CHLORIDE 20mEq 10ML VIAL ONE (13:36)
[2016-08-24] MEDS ORDERED: POTASSIUM CHLORIDE 10mEq 5ML VIAL ONE (13:36)
[2016-08-24] MEDS ORDERED: [UNRECOGNIZED DRUG - OTHER] IVS ONE (13:36)
[2016-08-24] MEDS ORDERED: MULTIPLE VITAMIN 10 ML VIAL ONE (13:38)
[2016-08-24 15:26] VITALS: BP 95/64
[2016-08-24] MEDS ORDERED: POTASSIUM CHLORIDE 10 MEQ TAB PO SCH (17:00)
[2016-08-24] MEDS ORDERED: RIVAROXABAN 10 MG TAB PO SCH (17:30)
--- NOTE | 2016-08-25 10:40 | DS ---
SUPERVISING PHYSICIAN: Martín Aldana MD DISCHARGE DIAGNOSIS: 1. Chronic diarrhea, secondary to acute colitis after colonoscopy 3 weeks previously with possible ulcerative colitis resulting in multiple acute episodes of dehydration and weakness with current episode of positive Clostridium difficile toxin A with Clostridium difficile associated colitis. 2. Hypomagnesemia, secondary to #1. 3. Febrile illness with tachycardic rhythm with some mild confusion and some hypotension compared to previous admission vital signs possibly secondary to superimposed infection, more likely Clostridium difficile colitis with the patient having ongoing chronic diarrhea with exacerbation from ulcerative colitis. 4. History of atrial fibrillation on Xarelto anticoagulation, showing normal sinus rhythm on EKG. 5. History of hypertension, now hypotensive with concerns of an early septic process, showing good response to IV therapy including antibiotics and fluids. HISTORY OF PRESENT ILLNESS: Ms. Baca is a 65-year-old, female patient with a significant history of chronic diarrhea for well over 18 weeks and being followed by a gastrointestinal specialist in [place]. She has had a colonoscopy within the last 3 weeks, including a biopsy with acute colitis noted with multiple episodes of dehydration due to the persistent diarrhea. On the date of admission, her noted that the patient was unable to get up out of bed the morning of admission, was very shaky and somewhat confused. She presented to the Emergency Department with dehydration and laboratory studies completed showed that she had a low magnesium at 1.5, potassium 4.8, glucose 100. Urinalysis was within normal limits. White count was 8.6. The patient has a longstanding history of leukopenia and also of note was a left shift with fever of 102.2 in the Emergency Department. Given the patient's longstanding history of chronic diarrhea, colitis and some confusional state, a CT of the head was completed and per radiology interpretation showed no acute intracranial abnormalities. She was given initial multivitamin infusion in the Emergency Department as well as 2 grams of magnesium and showed improvement in her mental status. The patient now is to be admitted to the Medical/Surgical floor for continued treatment and evaluation with concerns for possible underlying superimposed infection with the patient being febrile on admission. The patient was admitted with the patient being febrile on admission along with her being tachycardic and having some mild confusion. She was admitted in stable condition and started on specific antibiotic therapy. LABORATORY: CBC on admission showed white count 8.6 with hemoglobin 13.5, hematocrit 40.7, with differential showing a left shift and elevated neutrophil count. At time of discharge and transfer after treatment, the patient's white count was 6.8, hemoglobin 13.1, hematocrit 39.8 with platelet count 243,000. Differential continued to show a left shift although absolute neutrophil count had normalized. Chemistries on admission initially showed she had potassium 4.8 , BUN 16, creatinine 0.88. Serum osmolality was 271, magnesium 1.5, calcium 9.1 , lactic acid 1.4 and TSH 2.0. After rehydration and therapy, at discharge and transfer, sodium was 132, BUN 12, creatinine 0.93, glucose 109, calcium 7.5, but corrected for albumin of 3.0 was 8.1. It should be noted that the patient was having greater than ten stools per 24 hours, possibly resulting in the hyponatremia. MICROBIOLOGY: She had three C. difficile A and B toxins completed with two of them showing negative for C. difficile antigen, but positive for C. difficile toxin A and B. Stool culture at time of transfer preliminary was needing further incubation. RADIOLOGY: Chest x-ray in the Emergency Department prior to admission per radiology interpretation showed no evidence of acute cardiopulmonary disease. She also had a head CT without contrast and per radiology interpretation showed no acute intracranial abnormalities. CT of the abdomen was not completed as initially on admission, the patient was not complaining of significant abdominal pain and just recently had a colonoscopy. HOSPITAL COURSE: The patient was admitted to the hospital from the Emergency Room as noted in history of present illness for dehydration and replacement of electrolytes. She was given a multivitamin infusion with D5 and half normal saline initially. This was followed up with additional IV fluids. She was somewhat hypotensive in the Emergency Department. Initially, vital signs at time of admission to the Medical/Surgical Floor showed a blood pressure of 82/ 60. She have a T-max of 102.2. After 3 liters of fluids on the Medical/ Surgical Floor and initiation of antibiotic therapy to include Levaquin and Flagyl, the patient showed good results. Saturation was 95% on room air. On the morning of transfer, blood pressure was 111/76 with pulse 96, temperature 99.1, saturation 93% on room air. After the C. difficile toxin was reported out , antibiotic therapy was altered to include vancomycin p.o. and Levaquin was stopped, but Flagyl continued. She was again provided a multivitamin infusion this time with D5 LR. Given the patient's significant history and multiple work ups including colonoscopy, ultimately, it was decided that the patient would be best served by transfer to [facility] for GI consultation. She was initially set up to be discharged and have close clinical followup in the morning with GI specialist, however, given the patient' s condition at time of transfer, it was not warranted for the patient to be discharged, but rather to be transferred for further evaluation and treatment as the patient continued to have significant volume loss and was requiring IV therapy. The patient was transferred by ground in stable condition. PLAN: The patient was transferred to [facility] after Dr. Aldana consulted with Dr. Iglesias, GI specialist at [facility] and it was agreed that the patient should be transferred to [facility]. Transfer was secured with the hospitalist diamond die maker and the patient was transferred by ground ambulance in stable condition. REASON FOR TRANSFER: Further treatment at higher level of care with specialist not available at [facility]. Dr. Aldana was noted of the transfer, current plan of care, and available for consultation. #[id number] [facility]
== END 2016-08-24 15:30 | disposition short-term general hospital (02) | DRG 872 ==
LOC: ER 10:59 → MS 16:28 → OBSVTOIN 16:28
PROVIDERS: ADMIT Nurse Practitioner Family; ATTEND Nurse Practitioner Family
DX: A41.9 Sepsis, unspecified organism (principal); A04.7 Enterocolitis due to Clostridium difficile; K51.90 Ulcerative colitis, unspecified, without complications; E83.42 Hypomagnesemia; I48.91 Unspecified atrial fibrillation; I95.9 Hypotension, unspecified; D72.819 Decreased white blood cell count, unspecified; E86.0 Dehydration; J30.2 Other seasonal allergic rhinitis; I10 Essential (primary) hypertension; M19.90 Unspecified osteoarthritis, unspecified site; E03.9 Hypothyroidism, unspecified; M06.9 Rheumatoid arthritis, unspecified; F32.9 Major depressive disorder, single episode, unspecified; Z78.0 Asymptomatic menopausal state; Z79.01 Long term (current) use of anticoagulants; Z79.52 Long term (current) use of systemic steroids; Z79.899 Other long term (current) drug therapy; Z88.0 Allergy status to penicillin; Z88.1 Allergy status to other antibiotic agents; Z88.2 Allergy status to sulfonamides

== ENCOUNTER → 2016-09-04 | Outpatient (CLI) | payer MEDICARE, OTHER ==
--- NOTE | 2016-09-05 11:20 | CT ---
EXAM DESCRIPTION: Abdomen/Pelvis w/Contrast CLINICAL HISTORY: ABD PAIN COMPARISON: None Available TECHNIQUE: CT of the abdomen and Pelvis was performed with IV contrast. This exam was performed according to our departmental dose-optimization program, which includes automated exposure control, adjustment of the mA and/or kV according to patient size and/or use of iterative reconstruction technique. FINDINGS: There is concentric wall thickening involving the entire colon with mild adjacent inflammation. No abscess or pneumoperitoneum. Minimal colonic diverticular disease. No dilated small bowel loops, and no definite small bowel wall thickening or mesenteric inflammation. There are a few small round radiopaque structures in the stomach which likely represent ingested material. The lung bases are unremarkable. The gallbladder is present but no calcified gallstone is identified. The liver, spleen, pancreas, adrenals and kidneys are unremarkable. There are mural calcifications in the abdominal aorta without aneurysm or dissection. The uterus and ovaries are unremarkable for patient's age. No pelvic adenopathy or free pelvic fluid. There are degenerative changes in lumbar spine multiple levels including degenerative disc disease, worse at L2-3 including left foraminal disc bulging and annular calcification resulting in advanced left-sided neuroforaminal stenosis. There is mild scoliosis. IMPRESSION: Concentric pancolonic wall thickening with mild pericolonic inflammation but no abscess, pneumoperitoneum or obstruction. Findings are consistent with colitis. Infectious and inflammatory causes should be considered. In the appropriate clinical setting, C. difficile colitis should also be considered. Mild colonic diverticulosis without diverticulitis. Degenerative changes in the lumbar spine including advanced degenerative disc disease at L2-3 resulting in severe left-sided neuroforaminal stenosis. Electronically signed by: Brent Toledo MD 09/05/2016 11:19 AM CDT
== END ==
LOC: CT 14:49
PROVIDERS: ATTEND Family Medicine
DX: R10.9 Unspecified abdominal pain (principal); R19.7 Diarrhea, unspecified; K57.30 Diverticulosis of large intestine without perforation or abscess without bleeding; M51.36 Other intervertebral disc degeneration, lumbar region; E53.8 Deficiency of other specified B group vitamins

== ENCOUNTER → 2016-09-05 | Outpatient (CLI) | payer MEDICARE, OTHER | END | disposition home or self-care (01) | LOC: BFHH 15:42 | PROVIDERS: ATTEND Family Medicine | DX: N39.0 Urinary tract infection, site not specified (principal) ==

== ENCOUNTER 2016-09-09 14:34 | Outpatient (CLI) | payer MEDICARE, OTHER ==
[2016-09-09] MEDS ORDERED: SODIUM CHLORIDE 0.9% 1000ML 1,000 ML IVS ONE (15:21)
[2016-09-09 16:52] VITALS: BP 126/84; TEMP 99.2; O2SAT 95
== END 2016-09-09 16:50 | disposition home or self-care (01) ==
LOC: TXRM 14:34
PROVIDERS: ATTEND Family Medicine
DX: E86.0 Dehydration (principal)
CPT/HCPCS: 96360; J7030

== ENCOUNTER 2016-09-11 11:41 | Outpatient (CLI) | payer MEDICARE, OTHER ==
[2016-09-11] MEDS ORDERED: SODIUM CHLORIDE 0.9% 1000ML 1,000 ML IVS ONE (11:56)
[2016-09-11 13:26] VITALS: BP 100/68; TEMP 97.8; O2SAT 97
== END 2016-09-11 13:15 | disposition home or self-care (01) ==
LOC: TXRM 11:41
PROVIDERS: ATTEND Family Medicine
DX: E86.0 Dehydration (principal); K51.90 Ulcerative colitis, unspecified, without complications
CPT/HCPCS: 96360; G0463; J7030

== ENCOUNTER → 2016-12-16 | Outpatient (CLI) | payer MEDICARE, OTHER | LOC: GMAJ 14:20 | PROVIDERS: ATTEND Family Medicine | DX: R41.82 Altered mental status, unspecified (principal); K90.89 Other intestinal malabsorption; A04.7 Enterocolitis due to Clostridium difficile ==

== ENCOUNTER 2017-03-09 07:00 | Day surgery (SDC) | payer MEDICARE, OTHER ==
[~2017-03-09 07:00] MED LIST: LIDOCAINE 1% MPF 5 ML VIAL ONE
[2017-03-09] MEDS ORDERED: TROP 1%/CYCLOPEN 1%/PHENYL 2% DROPS ONE (08:15)
[2017-03-09] MEDS ORDERED: MIDAZOLAM INJ 2 MG/2 ML VIAL ONE (10:33)
[2017-03-09] MEDS: PROPARACAINE 0.5% OPHTH SOL 15 ML BTTL ONE ×2 (10:47→11:00)
[2017-03-09] MEDS ORDERED: TOBRAMYCIN-DEXAMETH OPHTH SOL 1 DROP RIGHT_EYE ONE (10:47)
[2017-03-09] MEDS ORDERED: DEXAMETHASONE 0.1% OPHTH SOL 1 DROP RIGHT_EYE ONE ×2 (11:10→11:18)
[2017-03-09] MEDS ORDERED: BRIMONIDINE 0.2% OPHTH DROPS RIGHT_EYE ONE ×2 (11:11→11:18)
[2017-03-09] MEDS ORDERED: TOBRAMYCIN SULF 0.3 % OPHT SOL 1 DROP RIGHT_EYE ONE (11:11)
[2017-03-09] MEDS ORDERED: GENTAMICIN 0.3% OPHTH SOL 1 DROP RIGHT_EYE ONE ×2 (11:15→11:18)
[2017-03-09 12:27] VITALS: BP 126/82; TEMP 96.8; O2SAT 94
== END 2017-03-09 12:03 | disposition home or self-care (01) ==
LOC: AMB 07:00
PROVIDERS: ATTEND Ophthalmology
DX: H25.11 Age-related nuclear cataract, right eye (principal); I10 Essential (primary) hypertension; I25.10 Atherosclerotic heart disease of native coronary artery without angina pectoris; Z88.0 Allergy status to penicillin; Z88.2 Allergy status to sulfonamides; Z88.8 Allergy status to other drugs, medicaments and biological substances; Z79.899 Other long term (current) drug therapy
CPT/HCPCS: 66984; J2250

== ENCOUNTER → 2017-05-20 | Outpatient (CLI) | payer MEDICARE, OTHER | END | disposition home or self-care (01) | LOC: GMAJ 15:29 | PROVIDERS: ATTEND Family Medicine | DX: M06.9 Rheumatoid arthritis, unspecified (principal); E03.9 Hypothyroidism, unspecified; I10 Essential (primary) hypertension ==

== ENCOUNTER → 2017-09-03 | Outpatient (CLI) | payer OTHER ==
--- NOTE | 2017-09-04 09:11 | US ---
EXAM DESCRIPTION:Carotid Duplex CLINICAL HISTORY:OCCLUSION AND STENOSIS OF BILATERAL CAROTID ARTERIES COMPARISON: None TECHNIQUE: Grayscale and color Doppler sonographic evaluations of carotid and vertebral arterial segments of the neck. FINDINGS: Carotid and vertebral arteries are patent bilaterally with appropriate directions of flow, and biphasic flow waveforms. Minimal calcific atherosclerotic deposition along carotid bulbs and proximal internal carotid arteries. Peak systolic flow velocities (in CM/sec) as follows: Right side, CCA proximal, 69 CCA distal, 64 ICA proximal, 58 ICA mid, 54 ICA distal, 53 ECA proximal, 53 Proximal ICA/distal CCA ratio, 0.9 Left side, CCA proximal, 79 CCA distal, 78 ICA proximal, 53 ICA mid, 53 ICA distal, 38 ECA proximal, 55 Proximal ICA/distal CCA ratio, 0.7 Morphologically, focal greater than 50% stenosis along the left carotid bulb. IMPRESSION: Carotid and vertebral arteries are patent bilaterally with appropriate directions of flow No flow limiting stenosis along internal carotid arteries based on velocity criteria. Focal morphologically greater than 50% stenosis along the left carotid bulb. Electronically signed by: Maciej Palomares MD 09/04/2017 9:09 AM CDT
== END | disposition home or self-care (01) ==
LOC: US 14:20
PROVIDERS: ATTEND Family Medicine
DX: I65.23 Occlusion and stenosis of bilateral carotid arteries (principal)

== ENCOUNTER → 2017-09-15 | Outpatient (CLI) | payer OTHER | LOC: LAB.O 11:48 | PROVIDERS: ATTEND Family Medicine | DX: R19.7 Diarrhea, unspecified (principal) ==

== ENCOUNTER → 2018-06-09 | Outpatient (CLI) | payer OTHER | LOC: GMAJ 17:16 | PROVIDERS: ATTEND Family Medicine | DX: E03.9 Hypothyroidism, unspecified (principal) ==

== ENCOUNTER → 2018-11-15 | Outpatient (CLI) | payer OTHER ==
--- NOTE | 2018-11-16 15:49 | CT ---
EXAM DESCRIPTION: Soft Tissue Neck w/Contrast CLINICAL HISTORY: 68 years Female, Localized swelling, mass and lump, neck COMPARISON: None. TECHNIQUE: CT soft tissue neck was performed with IV contrast. This exam was performed according to our departmental dose-optimization program, which includes automated exposure control, adjustment of the mA and/or kV according to patient size and/or use of iterative reconstruction technique. FINDINGS: Calcified granuloma in the right lung apex. Scarring is noted elsewhere in both lung apices. The thyroid and thoracic inlet are unremarkable. No supraclavicular, cervical or submandibular adenopathy. Coronary calcifications are noted bilaterally, left worse than right. The submandibular and parotid glands are bilaterally symmetric and otherwise unremarkable. No lesion in the floor of the mouth. The epiglottis is not thickened. No pharyngeal or retropharyngeal soft tissue thickening. The parapharyngeal spaces are bilaterally symmetric and otherwise unremarkable. Degenerative changes in the cervical spine multiple levels including degenerative disc disease at C4-5 and C5-6. Facet and uncovertebral joint hypertrophy are also noted at several levels, and findings result in neural foraminal stenosis bilaterally at C4-5, C5-6 and C6-7. The paraspinal soft tissues are unremarkable. IMPRESSION: No adenopathy or other neck mass. Bilateral carotid artery disease, worse on the left side. Ultrasound should be considered for further evaluation if not performed recently. Degenerative changes in the cervical spine including degenerative disc disease and neural foraminal stenosis, worse at C4-5 and C5-6. Electronically signed by: Brent Toledo MD 11/16/2018 3:47 PM CDT
== END ==
LOC: CT 11:14
PROVIDERS: ATTEND Surgery
DX: R22.1 Localized swelling, mass and lump, neck (principal); I65.23 Occlusion and stenosis of bilateral carotid arteries; M50.321 Other cervical disc degeneration at C4-C5 level; M50.322 Other cervical disc degeneration at C5-C6 level; M48.02 Spinal stenosis, cervical region

== ENCOUNTER → 2019-02-02 | Outpatient (CLI) | payer OTHER | LOC: GMAJ 14:48 | PROVIDERS: ATTEND Family Medicine | DX: E03.9 Hypothyroidism, unspecified (principal); I10 Essential (primary) hypertension ==

== ENCOUNTER → 2019-06-13 | Outpatient (CLI) | payer OTHER ==
--- NOTE | 2019-06-13 13:10 | MRI ---
EXAM DESCRIPTION: Lumbar Spine w/o Contrast CLINICAL HISTORY: 68 years Female, SPINAL STENOSIS LUMBAR REGION COMPARISON: None available. TECHNIQUE: Multiplanar multiecho imaging of the lumbar spine was performed without intravenous contrast administration. FINDINGS: Severe dextroscoliosis of the lumbar spine with multilevel degenerative changes. The vertebral body heights are well-maintained with no acute compression deformity. Multilevel intervertebral disc space narrowing is noted. The conus medullaris terminates at L1 vertebral body. The visualized spinal cord demonstrates no signal abnormality. L1-L2: Disc desiccation and loss of disc height. No significant central canal stenosis. Moderate bilateral neural foraminal narrowing is noted secondary to facet arthropathy. L2-L3: 2 mm retrolisthesis of L2 over L3. 5 mm posterior disc bulge and facet arthropathy with no significant central canal stenosis. Mild right and moderate to severe left lateral recess foraminal narrowing, mild right and severe left neural foraminal narrowing is noted. L3-L4: 3 mm diffuse disc bulge and facet arthropathy with no central canal stenosis. Moderate left lateral recess narrowing, mild right and moderate to severe left neural foraminal narrowing is noted. L4-L5: 2 mm anterolisthesis of L4 over L5. 4 mm diffuse disc bulge and facet arthropathy with no central canal stenosis. Mild to moderate right and moderate left neural foraminal narrowing is identified. L5-S1: 5 mm diffuse disc bulge and facet arthropathy with no central canal stenosis. Moderate right and mild left neural foraminal narrowing is noted secondary to facet arthropathy. The visualized prevertebral and paravertebral soft tissues appear unremarkable. IMPRESSION: Dextroscoliosis of the lumbar spine with multilevel degenerative disc disease and facet arthropathy resulting in variable degrees of neural foraminal narrowing, worse at L2-L3 and L3-L4 levels. Electronically signed by: Janelle Ravi MD 06/13/2019 1:08 PM [facility]
== END ==
LOC: MRI 10:02
PROVIDERS: ATTEND Family Medicine
DX: M48.062 Spinal stenosis, lumbar region with neurogenic claudication (principal); M41.86 Other forms of scoliosis, lumbar region; M51.36 Other intervertebral disc degeneration, lumbar region; M12.9 Arthropathy, unspecified

== ENCOUNTER → 2019-06-23 | Outpatient (CLI) | payer OTHER ==
--- NOTE | 2019-06-27 16:11 | MAM ---
EXAM DESCRIPTION: 3D Screening BILATERAL : Digital Mammography. CLINICAL HISTORY: 68 years Female ANNUAL SCREENING . No complaints. No personal or family history of breast cancer. Menarche age 11. Childbirth age 23. In the [place] age 48. HRT 5 or more years ago.. Lifetime risk of developing breast cancer (Tyrer-Cuzick model)(%): 5.6. COMPARISON: 2-D digital screening bilateral mammography May 2014. No prior reports available. TECHNIQUE: Bilateral CC and MLO projection full-field images, digital tomosynthesis mammographic technique. Bilateral digital 2-D full-field MLO images. CAD available for 2-D images FINDINGS: The breast parenchymal density pattern is: Heterogeneously dense breast tissue, which may obscure small masses. No skin thickening or nipple retraction. Skin mole marker inferior right breast. Bilateral vascular calcifications. Bilateral axillary lymph nodes. Bilateral solitary parenchymal calcifications. No new focal, stellate mass or density, focal asymmetry , and no suspicious microcalcifications bilaterally. Stable mammograms compared to prior study. Taking into account, differences in mammographic technique. IMPRESSION: Benign exam. BIRAD CATEGORY: 2 BENIGN FINDINGS. RECOMMENDATIONS: FOLLOW UP: Routine digital bilateral mammographic screening, one year interval from June 2019. Written communication explaining the IMPRESSION and follow-up, will be mailed to the patient and referring health care provider. According to the [employer], yearly mammograms are recommended starting at age 40 and continuing as long as a woman is in good health. Any breast change noted on a breast self-exam should be reported promptly to the patient's healthcare provider. Breast MRI is recommended for women with an approximately 20-25% or greater lifetime risk of breast cancer, including women with a strong family history of breast or ovarian cancer and women who have been treated for Hodgkin's disease. A negative mammographic report should not delay tissue diagnosis in patients with significant clinical history or physical findings. Extremely dense breast tissue limits the sensitivity of digital mammography. Electronically signed by: Ferny Prado MD 06/27/2019 4:09 PM [employer]
== END ==
LOC: MAMMO 14:00
PROVIDERS: ATTEND Family Medicine
DX: Z12.31 Encounter for screening mammogram for malignant neoplasm of breast (principal)

== ENCOUNTER → 2019-11-21 | Outpatient (CLI) | payer OTHER | LOC: GMAJ 15:18 | PROVIDERS: ATTEND Family Medicine | DX: E03.8 Other specified hypothyroidism (principal) ==

== ENCOUNTER 2020-04-16 05:19 | Day surgery (SDC) | payer OTHER ==
[2020-04-16] MEDS ORDERED: LIDOCAINE 1% 10 ML VIAL INJ ONE ×2 (07:30→09:24)
[2020-04-16] MEDS ORDERED: BETAMETHASONE ACETATE/BETAMETH 6 MG/ML VIAL IM ONE ×2 (07:31→09:25)
[2020-04-16] MEDS ORDERED: BUPIVACAINE 0.5% 30 ML VIAL INJ ONE ×2 (07:31→09:25)
== END 2020-04-16 09:56 | disposition home or self-care (01) ==
LOC: AMB 05:19
PROVIDERS: ATTEND Family Medicine Sports Medicine
DX: G89.29 Other chronic pain (principal); M54.5 Low back pain; M47.896 Other spondylosis, lumbar region; I48.91 Unspecified atrial fibrillation; G43.909 Migraine, unspecified, not intractable, without status migrainosus; I10 Essential (primary) hypertension; M41.9 Scoliosis, unspecified; E03.9 Hypothyroidism, unspecified; K58.9 Irritable bowel syndrome, unspecified; K51.90 Ulcerative colitis, unspecified, without complications; Z88.0 Allergy status to penicillin; Z88.2 Allergy status to sulfonamides; Z88.8 Allergy status to other drugs, medicaments and biological substances; Z79.01 Long term (current) use of anticoagulants; Z79.899 Other long term (current) drug therapy

== ENCOUNTER 2020-04-30 07:15 | Day surgery (SDC) | payer OTHER ==
[~2020-04-30 07:15] MED LIST changes: +BETAMETHASONE ACETATE/BETAMETH 6 MG/ML VIAL IM ONE; +BUPIVACAINE 0.5% 30 ML VIAL INJ ONE; +LIDOCAINE 1% 10 ML VIAL INJ ONE; -LIDOCAINE 1% MPF 5 ML VIAL ONE
[2020-04-30] MEDS ORDERED: BETAMETHASONE ACETATE/BETAMETH 6 MG/ML VIAL IM ONE ×2 (08:11)
[2020-04-30] MEDS ORDERED: LIDOCAINE 1% 10 ML VIAL INJ ONE ×2 (08:11)
[2020-04-30] MEDS ORDERED: BUPIVACAINE 0.5% 30 ML VIAL INJ ONE ×2 (08:13)
== END 2020-04-30 08:35 | disposition home or self-care (01) ==
LOC: AMB 07:15
PROVIDERS: ATTEND Family Medicine Sports Medicine
DX: G89.29 Other chronic pain (principal); M54.5 Low back pain; M47.896 Other spondylosis, lumbar region; Z88.0 Allergy status to penicillin; Z88.2 Allergy status to sulfonamides; Z88.8 Allergy status to other drugs, medicaments and biological substances; I48.91 Unspecified atrial fibrillation; G43.909 Migraine, unspecified, not intractable, without status migrainosus; I10 Essential (primary) hypertension; E03.9 Hypothyroidism, unspecified; D72.819 Decreased white blood cell count, unspecified; K58.9 Irritable bowel syndrome, unspecified; Z87.891 Personal history of nicotine dependence; Z79.01 Long term (current) use of anticoagulants; Z79.899 Other long term (current) drug therapy

== ENCOUNTER → 2020-07-25 | Outpatient (CLI) | payer MEDICARE | LOC: GMAJ 10:53 | PROVIDERS: ATTEND Family Medicine | DX: E03.9 Hypothyroidism, unspecified (principal); I10 Essential (primary) hypertension ==